=== PATIENT | female | born 1990 | race Caucasian/White ===

== ENCOUNTER 2020-03-07 19:28 | Outpatient (CLI) | payer OTHER ==
[2020-03-07] MEDS ORDERED: VITAMIN C100 MG PO (19:53)
[2020-03-07] MEDS ORDERED: PRENATAL TABLE1 EAC1 PO (19:53)
== END 2020-03-08 11:12 | disposition home or self-care (01) ==
LOC: EDBD 19:28 → OBS/DEL 19:28
PROVIDERS: ATTEND Obstetrics & Gynecology
DX: O23.43 Unspecified infection of urinary tract in pregnancy, third trimester (principal)

== ENCOUNTER 2020-04-16 07:54 | Inpatient (IN) | payer OTHER ==
[~2020-04-16] VITALS: Ht 162.6 cm; Wt 57.2 kg
[~2020-04-16 07:54] MED LIST: PRENATAL TABLE1 EAC1 PO; VITAMIN C100 MG PO
== END 2020-04-18 17:12 | disposition home or self-care (01) | DRG 807 ==
LOC: OB/GYN 07:54 → LDR 07:54 → OB/GYN 18:10
PROVIDERS: ADMIT Obstetrics & Gynecology; ATTEND Obstetrics & Gynecology
PROC: 10E0XZZ Delivery of Products of Conception, External Approach (ICD-10-PCS; principal; 2020-04-16)
PROC: 4A1HXFZ Monitoring of Products of Conception, Cardiac Rhythm, External Approach (ICD-10-PCS; 2020-04-16)
PROC: 3E033VJ Introduction of Other Hormone into Peripheral Vein, Percutaneous Approach (ICD-10-PCS; 2020-04-16)
DX: O75.3 Other infection during labor (principal); Z37.0 Single live birth; Z3A.39 39 weeks gestation of pregnancy; Z20.828 Contact with and (suspected) exposure to other viral communicable diseases

== ENCOUNTER 2022-05-19 02:09 | Outpatient (CLI) | payer OTHER ==
[2022-05-19] MEDS ORDERED: PRENATAL TABLE1 EAC1 PO (06:56)
== END 2022-05-19 20:13 | disposition home or self-care (01) ==
LOC: OBS/DEL 02:09
PROVIDERS: ATTEND Obstetrics & Gynecology
DX: O23.43 Unspecified infection of urinary tract in pregnancy, third trimester (principal); N39.0 Urinary tract infection, site not specified; Z3A.36 36 weeks gestation of pregnancy

== ENCOUNTER 2022-05-29 05:35 | Inpatient (IN) | payer OTHER ==
[~2022-05-29] VITALS: Ht 160 cm; Wt 59.9 kg
== END 2022-05-31 13:41 | disposition home or self-care (01) | DRG 807 ==
LOC: OB/GYN 05:35 → LDR 05:35 → OB/GYN 08:57
PROVIDERS: ADMIT Obstetrics & Gynecology; ATTEND Obstetrics & Gynecology
PROC: 10E0XZZ Delivery of Products of Conception, External Approach (ICD-10-PCS; principal; 2022-05-29)
PROC: 0HQ9XZZ Repair Perineum Skin, External Approach (ICD-10-PCS; 2022-05-29)
PROC: 4A1HXCZ Monitoring of Products of Conception, Cardiac Rate, External Approach (ICD-10-PCS; 2022-05-29)
DX: O70.1 Second degree perineal laceration during delivery (principal); Z37.0 Single live birth; Z3A.38 38 weeks gestation of pregnancy; Z20.822 Contact with and (suspected) exposure to COVID-19

== ENCOUNTER 2023-05-20 10:20 | Outpatient (CLI) | payer OTHER | END 2023-05-20 12:23 | disposition home or self-care (01) | LOC: PRENATAL 10:20 | PROVIDERS: ATTEND Obstetrics & Gynecology Maternal & Fetal Medicine | DX: O35.3XX0 Maternal care for (suspected) damage to fetus from viral disease in mother, not applicable or unspecified (principal); O44.00 Complete placenta previa NOS or without hemorrhage, unspecified trimester; Z14.8 Genetic carrier of other disease; Z3A.19 19 weeks gestation of pregnancy ==

== ENCOUNTER 2023-07-25 21:22 | Outpatient (CLI) | payer OTHER ==
[~2023-07-25] VITALS: Ht 154.9 cm; Wt 58.1 kg
[2023-07-25 23:58] LABS: URINE APPEARANCE Clear; URINE BILIRRUBIN Negative (NEGATIVE); URINE BLOOD Negative; URINE COLOR Yellow; URINE GLUCOSE Negative (NEGATIVE); URINE LEUKOCYTE Small; URINE NITRATE Negative; URINE PROTEIN 30 (NEGATIVE)
[2023-07-26 00:02] LABS: URINE EPITHELIAL CELLS 61.6 uL (0.0-38.8); URINE RBC 7.9 uL (0.0-20.8); URINE WBC 44.8 uL (0.0-23.2)
[2023-07-26 00:04] LABS: MEAN CELL VOLUME 89.8 fL (80.00-100.00); MEAN CORPUSCULAR HGB CONC 34.2 g/dl (32.0-36.0); PLATELET COUNT 214 K/uL (150-450); RED BLOOD COUNT 3.45 M/uL (4.00-6.00); RED CELL DISTRIBUTION WIDTH 14.6 % (11.5-14.5)
[2023-07-26 00:05] LABS: HEMOGLOBIN 10.6 g/dL (12.0-15.00); MEAN CORPUSCULAR HEMOGLOBIN 30.7 pg (27.00-32.0)
[2023-07-26 00:06] LABS: URINE BACTERIA > 9821.5 uL (0.0-1933)
[2023-07-26 00:28] LABS: BILIRUBIN TOTAL 1.33 mg/dL (0.3-1.2); CALCIUM 8.6 mg/dL (8.5-10.1); GFR 134.55; GLOBULINA 3.8 G/DL (2.4-3.5); POTASSIUM 3.98 mEq/L (3.5-5.1); TOTAL PROTEIN 6.8 gm/dL (6.4-8.2)
[2023-07-26 00:29] LABS: CREATININE SERUM 0.53 mg/dL (0.55-1.02)
== END 2023-07-26 12:50 | disposition home or self-care (01) ==
LOC: OBS/DEL 21:22
PROVIDERS: ATTEND Obstetrics & Gynecology
DX: O26.893 Other specified pregnancy related conditions, third trimester (principal); K52.89 Other specified noninfective gastroenteritis and colitis; Z3A.29 29 weeks gestation of pregnancy; Z88.6 Allergy status to analgesic agent

== ENCOUNTER 2023-09-22 14:32 | Outpatient (CLI) | payer OTHER | END 2023-09-22 14:43 | disposition home or self-care (01) | LOC: NST 14:32 | PROVIDERS: ATTEND Specialist | DX: Z34.93 Encounter for supervision of normal pregnancy, unspecified, third trimester (principal) ==

== ENCOUNTER 2023-09-29 08:22 | Inpatient (IN) | payer OTHER ==
[~2023-09-29] VITALS: Ht 162.6 cm; Wt 61.2 kg
[2023-09-29] MEDS ORDERED: PRENATAL TABLE1 EAC1 PO (08:45)
[2023-09-29] MEDS ORDERED: IRON325 MG PO (08:46)
[2023-09-29 09:25] LABS: HEMATOCRIT 30.3 % (36.0-45.00); HEMOGLOBIN 10.7 g/dL (12.0-15.00); MEAN CELL VOLUME 87.9 fL (80.00-100.00); MEAN CORPUSCULAR HEMOGLOBIN 31.1 pg (27.00-32.0); MEAN CORPUSCULAR HGB CONC 35.4 g/dl (32.0-36.0); PLATELET COUNT 151 K/uL (150-450); RED BLOOD COUNT 3.45 M/uL (4.00-6.00); RED CELL DISTRIBUTION WIDTH 15.9 % (11.5-14.5)
[2023-09-29 09:25] LABS: URINE APPEARANCE Clear; URINE BILIRRUBIN Negative (NEGATIVE); URINE BLOOD Small; URINE COLOR Yellow; URINE GLUCOSE Negative (NEGATIVE); URINE LEUKOCYTE Trace; URINE NITRATE Negative; URINE PROTEIN Negative (NEGATIVE)
[2023-09-29 09:26] LABS: URINE BACTERIA 1586.1 uL (0.0-1933); URINE EPITHELIAL CELLS 109.1 uL (0.0-38.8); URINE RBC 3.1 uL (0.0-20.8); URINE WBC 35.3 uL (0.0-23.2)
[2023-09-29 18:37] LABS: HEMATOCRIT 30.5 % (36.0-45.00); HEMOGLOBIN 10.7 g/dL (12.0-15.00); MEAN CELL VOLUME 87.2 fL (80.00-100.00); MEAN CORPUSCULAR HEMOGLOBIN 30.5 pg (27.00-32.0); PLATELET COUNT 149 K/uL (150-450); RED CELL DISTRIBUTION WIDTH 15.5 % (11.5-14.5)
[2023-09-29 23:07] LABS: ABG PH 7.348 (7.35-7.45); ABG PO2 25.8 mmHg (80-100); ABG pCO2 42.2 mmHg (35-45); BASE EXCESS -2.8 mmol/l; BICARBONATE 22.7 mmol/l (23-25); SaO2 42.4 %
[2023-09-29 23:08] LABS: o2 21 %
== END 2023-10-01 10:42 | disposition home or self-care (01) | DRG 807 ==
LOC: OBS/DEL 08:22 → LDR 13:23 → OBS/DEL 13:23 → OB/GYN 13:23
PROVIDERS: ADMIT Obstetrics & Gynecology; ATTEND Obstetrics & Gynecology
PROC: 10E0XZZ Delivery of Products of Conception, External Approach (ICD-10-PCS; principal; 2023-09-29)
PROC: 4A1HXCZ Monitoring of Products of Conception, Cardiac Rate, External Approach (ICD-10-PCS; 2023-09-29)
DX: O80 Encounter for full-term uncomplicated delivery (principal); Z37.0 Single live birth; Z3A.38 38 weeks gestation of pregnancy; Z20.822 Contact with and (suspected) exposure to COVID-19